=== PATIENT | female | born 1985 | race Caucasian/White ===

== ENCOUNTER 2019-07-31 14:59 | Emergency (ER) | payer OTHER ==
[~2019-07-31] VITALS: Ht 175.3 cm; Wt 140.6 kg
[2019-07-31] MEDS ORDERED: CYCL10 PO (16:48)
== END 2019-07-31 17:05 | disposition home or self-care (01) ==
LOC: ER 14:59
DX: S16.1XXA Strain of muscle, fascia and tendon at neck level, initial encounter (principal); M54.5 Low back pain; V43.52XA Car driver injured in collision with other type car in traffic accident, initial encounter
CPT/HCPCS: 72040; 99283-25

== ENCOUNTER 2019-08-02 12:10 | Emergency (ER) | payer OTHER ==
[~2019-08-02] VITALS: Ht 175.3 cm; Wt 140.6 kg
[~2019-08-02 12:10] MED LIST: CYCL10 PO
[2019-08-02] MEDS ORDERED: NAPR550 PO (14:09)
[2019-08-02] MEDS ORDERED: Robaxin-750750 MG PO (14:09)
== END 2019-08-02 14:25 | disposition home or self-care (01) ==
LOC: ER 12:10
DX: M54.5 Low back pain (principal); M54.6 Pain in thoracic spine; Z79.899 Other long term (current) drug therapy
CPT/HCPCS: 72070; 72100; 99283-25

== ENCOUNTER → 2025-08-19 | Outpatient (CLI) | payer OTHER ==
[~2025-08-19] MED LIST changes: +NAPR550 PO; +Robaxin-750750 MG PO
== END ==
LOC: LAB 16:20 → LAB SHORT 16:20
DX: N39.0 Urinary tract infection, site not specified (principal)
CPT/HCPCS: 87077; 87086; 87186